=== PATIENT | female | born 1945 | race Caucasian/White ===

== ENCOUNTER 2017-09-04 21:19 | Inpatient (IN) | payer MEDICARE, MEDICAID ==
[2017-09-04 21:39] LABS: Actual Bicarbonate (HCO3a) 29.7 mEq/L (22-26); Base Excess (BEa) 1.7 mEq/L (0 (+/-) 2.5); Calcium, Ionized 1.1 mmol/L (1.12-1.30); Hematocrit-ABG 42.8 % (36.0-47.0); Hemoglobin (Hb) 13.8 g/dL (12.0-16.0)
[2017-09-04] MEDS ORDERED: Albuterol Sulfate 2.5 mg/0.5 ml Neb ONE (21:45)
[2017-09-04 21:57] LABS: CO2 Tension 62.4 mmHg (35.0-45.0)
[2017-09-04 21:58] LABS: Analyzer IN Cardio ER; Puncture Site RRA
[2017-09-04 22:05] LABS: #Lymphocytes 3.1 thou/uL (1.20-3.40); #Neutrophils 6.9 thou/uL (1.40-6.50); %Basophils 0.1 % (0.0-1.0); %Eosinophils 0.3 % (0.0-10.0); %Lymphocytes 27.9 % (21.0-51.0); %Monocytes 8.6 % (0.0-10.0); %Neutrophils 63.1 % (42.0-75.0); Hemoglobin 14.1 g/dL (12.0-16.0); Mean Corpuscular HGB CONC 32.9 g/dL (32.0-36.0); Mean Corpuscular Hemoglobin 31.5 pg (27.0-31.0); Mean Corpuscular Volume 95.6 fl (81.0-99.0); Mean Platelet Volume 7.9 fL (7.4-10.4); Platelet Count 210 thou/uL (130-400); RBC Distribution Width 13.5 % (11.5-14.5); Red Blood Cell (RBC) Count 4.49 mill/uL (4.20-5.40)
[2017-09-04 22:20] LABS: CKMB 1.6 ng/mL (0-6.6)
[2017-09-04 22:52] LABS: Acetaminophen Less than 6.0 mcg/mL (10.0-30.0); Alcohol Less than 10 mg/dL (Less than 10); Salicylate Less than 8.0 mg/dL (15.0-30.0)
[2017-09-04 23:25] LABS: ALT (SGPT) 12 U/L (8-55); AST (SGOT) 19 U/L (5-34); Albumin 3.7 g/dL (3.4-4.8); Alkaline Phosphatase 72 U/L (40-150); Anion Gap 19 mmol/L (10-20); BUN (Urea Nitrogen) 41 mg/dL (9.8-20.1); Bilirubin, Total 0.6 mg/dL (0.2-1.2); CK (CPK) 158 U/L (29-168); Calc. Creatinine Clearance 0 mL/min (70-130); Carbon Dioxide 24 mmol/L (23-31); Chloride 100 mmol/L (98-107); Estimated GFR-MDRD 18; Globulin 3.3 g/dL (2.4-3.5); Glucose 155 mg/dL (80-115); Lipase 21 U/L (8-78); Potassium 3.4 mmol/L (3.5-5.1); Sodium 140 mmol/L (136-145)
--- NOTE | 2017-09-04 23:35 | RAD ---
EXAM: ONE VIEW CHEST HISTORY: Syncope. COMPARISON: None. FINDINGS: Normal cardiac silhouette. Pulmonary vessels and hilum are normal. Diminished lung volumes, likely due to poor inspiratory effort. Small bilateral effusions cannot be excluded. Adjacent parenchymal changes may be due to atelectasis. No pneumothorax. IMPRESSION: Bibasilar pleural and parenchymal changes likely due to diminished lung volumes. Small bilateral eff usions cannot be excluded. POS: [facility]
[2017-09-04] MEDS ORDERED: hydrALAZINE 20 MG/ML VIAL ONE (23:40)
--- NOTE | 2017-09-04 23:47 | CT ---
EXAM: NONCONTRAST HEAD CT HISTORY: Syncope. The patient was found down on the ground by daughter. COMPARISON: None. TECHNIQUE: Noncontrast head CT is performed from the skull base to the skull vertex. FINDINGS: No parenchymal hemorrhage. No extraaxial hematoma. No midline shift. Basilar cisterns are patent. Age-appropriate atrophy. Cortical hood-white matter differentiation is preserved. Ventricles and sulci are patent and symmetric. Mild mucosal thickening of the ethmoid air cells. There is bilateral maxillary sinus mucosal thicken ing. Adequate mastoid air cell aeration. Calvarium is intact. IMPRESSION: No acute intracranial process. No intracranial post-traumatic sequelae. POS: [facility]
[2017-09-05] MEDS ORDERED: Nitroglycerin 0.4 MG TAB (25 Tab Bottle) ONE (00:05)
[2017-09-05 00:38] LABS: Actual Bicarbonate (HCO3a) 27.2 mEq/L (22-26); Base Excess (BEa) -0.1 mEq/L (0 (+/-) 2.5); CO2 Tension 55.5 mmHg (35.0-45.0); Calcium, Ionized 1.1 mmol/L (1.12-1.30); Hematocrit-ABG 43.3 % (36.0-47.0); Hemoglobin (Hb) 13.6 g/dL (12.0-16.0); O2 Tension (PaO2) 77.8 mmHg (80.0-100.0); pH, Arterial 7.31 (7.35-7.45)
[2017-09-05 01:02] LABS: ALV-art Gradient 84.185 (0-20); Analyzer IN Cardio ER; Puncture Site RRA
[2017-09-05 02:16] LABS: Troponin I 0.302 ng/mL (< 0.028)
[2017-09-05] MEDS ORDERED: Ondansetron ODT 4 MG TAB PO PRN (03:26)
[2017-09-05] MEDS ORDERED: hydrALAZINE 20 MG/ML VIAL SLOW IVP PRN ×2 (03:26→16:14)
[2017-09-05] MEDS ORDERED: Milk Of Magnesia 30 ML UDCUP PO PRN (03:26)
[2017-09-05] MEDS ORDERED: traMADol HCl 50 MG TAB PO PRN (03:26)
[2017-09-05] MEDS ORDERED: Ondansetron HCl/PF 4 MG/2 ML Vial IVP PRN (03:26)
--- NOTE | 2017-09-05 04:10 | HP ---
PRIMARY CARE PHYSICIAN: Dr. Milton Abel. CHIEF COMPLAINT: The patient was found down by her daughter. HISTORY OF PRESENT ILLNESS: Ms. Nesbitt is a pleasant 71-year-old female that has a history of hypertension and sciatica. She was apparently found down by her daughter and she is unsure how long her mother had been on the ground, probably 5 or 6 hours at least. The patient's daughter has since left and unfortunately unable to get any additional history. The patient herself does not remember the details of what happened, all she notices that she was found on the ground. Her daughter apparently told the ER physician that she believes her mother may have taken too many pain medications and was over sedated. When I asked the patient how many medications that she took with regard to her Tylenol No.3, she just shakes her head and says she does not know. When I asked how many she normally takes, she says typically only one tablet a day. When I asked if she took 2, 3, or 4, she just shakes her head and says that she does not know. Otherwise, she does not have any additional history to offer me. REVIEW OF SYSTEMS: Essentially unobtainable due to the patient not having any idea about her symptoms prior to being found on the floor. PAST MEDICAL HISTORY: Significant for sciatica, hypertension. When I asked if she has sleep apnea, she says that she has done a sleep study in [place], [place], but does not know the results. When I asked if she has any lung disease, she says she may have some lung disease which is "undiagnosed" she also has constant constipation. PAST SURGICAL HISTORY: Negative. ALLERGIES: SULFA. SOCIAL HISTORY: She is . She has 2 children. She is a former smoker. She quit 5 weeks ago. Prior to that, she was smoking a pack a day for 10 years. Denies any alcohol use. FAMILY HISTORY: Significant for heart disease. MEDICATIONS: Include Benicar, Linzess, Lyrica, and Tylenol with Codeine. PHYSICAL EXAMINATION: GENERAL: She is alert and oriented. She appears to be in no acute distress. VITAL SIGNS: Her blood pressure has ranged anywhere from 120 to 240 systolic, heart rate 82, respiratory rate of 20, temperature was 98.5. HEENT: Pupils are equal, round, and reactive. Extraocular muscles are intact. Sclerae anicteric. Throat no erythema, no exudates. NECK: No adenopathy, no bruits. LUNGS: She has got extensive wheezing and rhonchi throughout almost all of her lung lazaro posteriorly. CARDIOVASCULAR: She has a normal S1, S2. I did not appreciate any S3 or S4. No murmurs, clicks, or rubs. ABDOMEN: Obese, it is soft, it is nontender, nondistended. Positive for bowel sounds. No rebound, no guarding. EXTREMITIES: There is trace pedal edema. She does have some chronic venous stasis changes. NEUROLOGIC: The exam is nonfocal. LABORATORY DATA: White blood cell count is 11, hemoglobin 14.1, hematocrit is 42.9, platelet count was 210. Her ABG: pH was 7.3, pCO2 of 62, pO2 of 56. Chemistries: Sodium 140, potassium 3.4, chloride is 100, CO2 is 24, BUN of 41, creatinine 2.6, glucose is 155. Her Tylenol level less than 6. Aspirin level less than 8. Plasma alcohol level less than 10. She had a CT scan of the brain , which was negative for any acute process and on her chest x-ray, she had some atelectasis at the bases. ASSESSMENT AND PLAN: This is a 71-year-old female that presented to the emergency room with altered mental status. She was found down by her daughter. It is likely that she may have overdosed on Tylenol with Codeine; however, she also is fairly obese and likely has some undiagnosed sleep apnea. She was also hypercapnic and she appears to have at least an acute bronchitis on exam and as possible this combination with the lung infection and likely obesity hypoventilation could have led to an acute hypoxic and hypercapnic respiratory failure leading into decreased mentation as well. She will be placed in the IMCU given that she is currently on BiPAP. We will place her on DuoNebs and supplemental oxygen. Continue BiPAP and consult Pulmonary in the a.m. We also may need to use a low dose of steroids as well. Avoid any sedating medications. For hypertension, continue her usual medications for blood pressure. We will need to reconcile the doses and names of the medications and restart these as indicated. Acute renal failure vs. acute on chronic renal failure. Her baseline renal function is unknown. Will start gentle hydration as assess. May need to check urine electrolytes, and renal ultrasound. Once she is off Bipap try to further clarify her past medical history and previous renal function She will be placed on deep venous thrombosis and gastrointestinal prophylaxis. MTDD
[2017-09-05 04:28] LABS: #Basophils 0.1 thou/uL (0.0-0.2); #Lymphocytes 1.2 thou/uL (1.20-3.40); #Monocytes 0.3 thou/uL (0.11-0.59); #Neutrophils 6.7 thou/uL (1.40-6.50); %Basophils 1.2 % (0.0-1.0); %Eosinophils 0.6 % (0.0-10.0); %Lymphocytes 14.3 % (21.0-51.0); Hemoglobin 13.4 g/dL (12.0-16.0); Mean Corpuscular HGB CONC 32.6 g/dL (32.0-36.0); Mean Corpuscular Hemoglobin 31.2 pg (27.0-31.0); Mean Corpuscular Volume 95.7 fl (81.0-99.0); Mean Platelet Volume 7.9 fL (7.4-10.4); Platelet Count 200 thou/uL (130-400); RBC Distribution Width 13.6 % (11.5-14.5); Red Blood Cell (RBC) Count 4.28 mill/uL (4.20-5.40); White Blood Cell (WBC) Count 8.3 thou/uL (4.8-10.8)
[2017-09-05 04:46] LABS: Anion Gap 18 mmol/L (10-20); BUN (Urea Nitrogen) 47 mg/dL (9.8-20.1); Calc. Creatinine Clearance 0 mL/min (70-130); Calcium 8.7 mg/dL (7.8-10.44); Carbon Dioxide 28 mmol/L (23-31); Chloride 98 mmol/L (98-107); Estimated GFR-MDRD 14; Glucose 216 mg/dL (80-115); Potassium 3.5 mmol/L (3.5-5.1); Sodium 140 mmol/L (136-145)
[2017-09-05 04:50] LABS: Troponin I 0.262 ng/mL (< 0.028)
--- NOTE | 2017-09-05 08:07 | ULT ---
RENAL ULTRASOUND: HISTORY: Acute renal failure. TECHNIQUE: Real-time imaging of the right and left kidneys was performed. FINDINGS: The right kidney measures 9.4 and the left kidney 10.3 cm in size. There are no signs of cyst, mass, or obstruction. The bladder region appears unremarkable. Some mild cortical thinning involving bot h kidneys. IMPRESSION: Mild cortical thinning involving both kidneys. No signs of obstruction or mass. POS: [facility]
[2017-09-05] MEDS ORDERED: Famotidine 20 MG TAB PO SCH (09:00)
[2017-09-05] MEDS ORDERED: Famotidine 20 MG TAB ONE (09:29)
[2017-09-05] MEDS ORDERED: Heparin 5,000 UNITS/ML VIAL ONE (09:29)
[2017-09-05] MEDS: Sodium Chloride 0.9% 1,000 ML IV SCH ×2 (14:09→16:33)
[2017-09-05] MEDS: Azithromycin 500 MG in Sodium Chloride 0.9% 250 ML 250 ML IVPB SCH (14:09)
[2017-09-05] MEDS: cefTRIAXone\\ROCEPHIN 2 GM in Sodium Chloride 0.9% 100 ML IVPB SCH (14:10)
[2017-09-05] MEDS: Heparin 5,000 UNITS/ML VIAL SC SCH ×3 (14:11→20:49)
[2017-09-05] MEDS: Aspirin 325 mg Enteric Coated Tablet PO SCH (14:11)
[2017-09-05] MEDS: Docusate 100 MG CAP PO SCH ×2 (14:11→20:49)
[2017-09-05] MEDS: Nitroglycerin 2% Ointment 1 INCH/1 GM Packet TOP SCH ×3 (15:14→22:25)
[2017-09-05 15:49] VITALS: BMI 44.4
--- NOTE | 2017-09-05 16:09 | PDOC.EVN ---
Event Note - Event Note Event Note: pt seen and evaluated cont current plan
[2017-09-05 16:18] LABS: Bilirubin Small (Negative); Blood, Urine Small (Negative); Clarity CLOUDY (Clear); Glucose, Urine (Dipstick) Negative (Negative); Leukocyte Small (Negative); Nitrite Negative (Negative); Protein, Urine (Dipstick) 30 mg/dL (Neg-Trace); Specific Gravity, Urine 1.024 (1.002-1.036); Urobilinogen 0.2 mg/dL (0.2-1.0); pH, Urine 5.5 (5.0-9.0)
[2017-09-05] MEDS ORDERED: FLU VACC TS2017-18 (>65YR) 0.5 ML SYRINGE IM ONE (16:30)
[2017-09-05 16:38] LABS: Pathc Cast-AUWi Flag 3.65 (0-2.49); Yeast-AUWi Flag 323.3 (0-25.0)
[2017-09-05 16:46] LABS: Bacteria/HPF 2+ HPF (None Seen); Hyaline Casts/LPF 4-6 HYALINE CAST LPF (0-3 Hyaline); Manual Microscopic Reviewed? No Path Casts Seen; Renal Epithelial None Seen HPF (0-3); Transitional Epithelial NONE SEEN HPF (0-3); Yeast-All Forms None Seen HPF (None Seen)
[2017-09-05 17:11] LABS: Troponin I 0.122 ng/mL (< 0.028)
--- NOTE | 2017-09-05 17:49 | CON ---
DATE OF CONSULTATION: 09/05/2017 CONSULTING PHYSICIAN: Flower Hartman M.D. REQUESTING PHYSICIAN: Dr. Huizar. REASON FOR CONSULTATION: Advanced chronic kidney disease. IMPRESSION: 1. Advanced chronic kidney disease, stage 4. This is likely in the context of nonsteroidal anti-inf lammatory drugs induced nephropathy plus or minus hypertensive nephrosclerosis. 2. Cannot completely rule out acute on chronic kidney disease component, the patient passed out for several hours. PLAN: 1. Gentle rehydration. 2. Counseling given on the need to avoid nonsteroidal anti-inflammatory drugs for now. 3. Renally dose all medications per low GFR. 4. Avoid potentially nephrotoxic agents. 5. Further management will be dependent on the clinical course. HISTORY OF PRESENT ILLNESS: History is that of a 71-year-old female patient who was found down by th e daughter and brought in here. The patient is on several pain medications, especially nonsteroidal anti-inflammatory drugs in addition to narcotic. The patient on presentation was noted to have signi ficant respiratory acidosis, hypercapnic respiratory failure. The patient at time of dictation seems to have much improved and is able to give me a history, alert and oriented x3. On presentation, the patient was noted with a creatinine of about 2.6, this has risen to above 3, thus the need for renal consultation. PAST MEDICAL HISTORY: Significant for hypertension, possible sleep apnea, hypoventilation syndrome i n the context of body habitus. MEDICATIONS: Reviewed and as documented on [employer]. ALLERGIES: SULFA. SOCIAL HISTORY: Denies alcohol. Tobacco use, quit about 5 weeks ago, has smoked for about 10 years. FAMILY HISTORY: Significant for heart disease. LABORATORY INVESTIGATION: Showed a pH of 7.30 on presentation with a pCO2 of 62 and pO2 of 56. Chem istry showed a creatinine of 3.33, BUN of 47, BNP of 466. CBC unremarkable. PHYSICAL EXAMINATION: GENERAL: The patient was found not to be in any obvious distress, noted with the following vital sig ns. VITAL SIGNS: Afebrile with temperature 97, pulse 63, respiratory rate of 20, O2 sat of 99% with bloo d pressure 130/64. HEENT: Unremarkable with moist oral mucosa. Neck is supple. No conjunctival injection or icterus. CARDIOVASCULAR SYSTEM: First and second heart sounds were heard. RESPIRATORY SYSTEM: Clear to auscultation. DIGESTIVE SYSTEM: Revealed a benign abdomen with positive bowel sounds. EXTREMITIES: No peripheral edema. SKIN: No new gross rash. LYMPHATICS: No peripheral lymphadenopathy. SUMMARY: A 71-year-old female patient, who presented here, having been found down and passed out, no w noted with worsening renal failure. Thank you for this consultation. We will follow with you.
[2017-09-05] MEDS ORDERED: Prevnar 13-Val Conj/PF 0.5 ML SYRINGE IM ONE (18:45)
[2017-09-05] MEDS ORDERED: predniSONE 20 MG TAB PO SCH (19:00)
--- NOTE | 2017-09-05 23:05 | CON ---
DATE OF CONSULTATION: 09/05/2017 HISTORY: Thais Nesbitt is a 71-year-old white female who has a history of hypertension and sciatica, who was found down at home by her daughter. It is unclear how long she was on the floor, possibly 5-6 hours. The patient really does not remember exactly what occurred. She was then found to have abnormal cardiac enzymes as well as chronic kidney disease versus acute kidney injury. She does state that one month ago on 08/01/2017, she underwent heart catheterization at [facility] in [place] and was told that her heart arteries did not have any significant blockages. She also apparently had some kidney abnormalities around that time too. She denies any chest discomfort to me; however, when asked why she had a heart catheterization, the daughter states it was for chest pains. PAST MEDICAL HISTORY: Hypertension. She has undergone a sleep study, but results are not known. Hypercholesterolemia. OPERATIONS: None. MEDICATIONS: Tylenol with codeine, aspirin 81 daily, Nexium 40 q.a.m., furosemide 40 daily, Linzess 145 mcg a.c., Benicar unknown dose daily, Lyrica 150 mg b.i.d., rosuvastatin 20 mg daily. ALLERGIES: SULFA. SOCIAL HISTORY: She smoked 1-2 packs per day, but stopped 4-5 weeks ago. She does not drink. FAMILY HISTORY: Negative. REVIEW OF SYSTEMS: Ten point review of systems is unremarkable. PHYSICAL EXAMINATION: VITAL SIGNS: Blood pressure 130/64, pulse is 63. HEENT: PERRL. NECK: Supple. CHEST: Clear. CARDIAC: S1 and S2 are normal without any S3, S4, or murmurs. ABDOMEN: Obese, normal bowel sounds. No tenderness. EXTREMITIES: Revealed 1+ pretibial edema. NEUROLOGIC: Grossly intact. SKIN: Warm and dry. LABORATORY DATA: EKG revealed normal sinus rhythm with baseline artifact. CBC is unremarkable. PH 7.31, pCO2 of 55.5, pO2 of 77.8, sodium 140, potassium 3.5 , chloride 98, carbon dioxide 28, BUN 47, creatinine 3.33 which is up from 2.61 , glucose 216, troponin I 0.30. CK 158, CK-MB 1.6. IMPRESSION: 1. Chronic obstructive pulmonary disease with CO2 retention. Smoker until 4 weeks ago. 2. Fall versus syncope at home. 3. Acute kidney injury and/or chronic kidney disease, possibly exacerbated by dye nephropathy from catheterization 5 weeks ago. I agree with discontinuation of the furosemide and Benicar/HCT at the present time until this can be further sorted out. 4. Reportedly normal coronary arteries on catheterization 5 weeks ago. 5. Hypertension. 6. Hypercholesterolemia. 7. Probable diabetes. PLAN: Echocardiogram will be performed to assess left ventricular function. Request will be made for catheterization report. I feel that her elevated enzymes are probably related to her kidney injury as well as demand ischemia. JOEY
[2017-09-05 23:14] LABS: Troponin I 0.098 ng/mL (< 0.028)
--- NOTE | 2017-09-05 23:51 | CON ---
DATE OF SERVICE: 09/05/2017 SERVICE: Pulmonary medicine. REASON FOR CONSULTATION: [facility] patient. HISTORY OF PRESENT ILLNESS: The patient is a 71-year-old white female with past medical history significant for a greater than [id number] history of smoking. She was in her usual state of health until about a week prior to admission. She started having something that felt like a little bit of an upper respiratory tract infection. She remembers having these symptoms because she was trying to stay away from her 5-year-old granddaughter to prevent her from getting sick. Either way, this really was not that significant of an illness. She went to bed and everything was essentially normal, she was found on the floor the next morning essentially unresponsive by family members. She was brought to the emergency department. She was placed on noninvasive ventilation. She was stuck into the ICU. Her mentation improved fairly quickly. As such, she is being considered for transition back to the floor. She has a cough on a daily basis. This has been present for a prolonged period of time. Does not bring up any sputum at this point and it seems to be roughly at baseline. She was tested for obstructive sleep apnea couple of months ago. She is yet to have her followup appointment, but she does distinctly remember being fitted with the CPAP mask in the middle of the night. PAST MEDICAL HISTORY: 1. Hypertension. 2. Obstructive sleep apnea. 3. Chronic obstructive pulmonary disease, strongly suspected. 4. Sciatica. PAST SURGICAL HISTORY: None. ALLERGIES: SULFA. MEDICATIONS: Listed inpatient medications were reviewed. Multiple small updates were made. SOCIAL HISTORY: She has 2 children and is . She has an [id number] history of smoking, but quit recently. She denies any alcohol or illicit drug use. She has no exposure to chemicals, dust, asbestos or tuberculosis. FAMILY HISTORY: Noncontributory. REVIEW OF SYSTEMS: General, head, ears, eyes, nose, throat, cardiovascular, respiratory, GI, , musculoskeletal, neurologic and skin is negative except as mentioned in the HPI. PHYSICAL EXAMINATION: VITAL SIGNS: Afebrile, pulse 63, blood pressure 130/64, respirations 20, saturation 99% on 3 liters nasal cannula. GENERAL: The patient is awake, alert, no apparent distress. LUNGS: Very reduced air entry with prolonged expiratory phase and polyphonic wheezing. I do not appreciate any significant rhonchi or crackles, though she is really not moving enough there to appreciate these things. HEART: Normal rate, regular. ABDOMEN: Soft, nontender, nondistended. Bowel sounds are positive. MUSCULOSKELETAL: No cyanosis or clubbing. No pitting in the bilateral lower extremities. NEUROLOGIC: Grossly nonfocal. LABORATORY DATA: WBC 8.3, hemoglobin 13.4, platelets 200,000. Neutrophil count is 88%. PH 7.31, pCO2 of 55, pO2 of 78. Creatinine 3.33. Basic metabolic profile is otherwise unremarkable. Magnesium 2.3. Troponin 0.122 and down trending. Lever function studies are unremarkable. Urinalysis is unremarkable. Tox screen was negative for salicylate, acetaminophen and alcohol , though a drug screen was not performed. IMAGIN. Ultrasound of the bilateral kidneys demonstrates no evidence of hydronephrosis. 2. Chest x-ray demonstrates large lung volumes for her height. Chronic changes in the bibasilar regions are suggested. This is underpenetrated film. 3. CT of the brain demonstrates no acute intracranial abnormality. ASSESSMENT: 1. Acute hypoxic and hypercapnic respiratory failure. 2. Chronic obstructive pulmonary disease, suspected with acute exacerbation. 3. Syncope, resolved. 4. Metabolic encephalopathy, resolved. 5. Obstructive sleep apnea based on patient's history of wearing the CPAP during the sleep study. PLAN: We will continue treating her for COPD exacerbation. The azithromycin and Rocephin can be transitioned over to p.o. medications. We will continue our steroids for a total duration of 4 more days. Respiratory virus panel will be obtained. A gentle IV hydration will be provided and hopefully, her renal function will start to slowly improve with time. I do agree that she is stable for transition out of the [facility], but I will continue to follow for 1 additional day. 70 minutes have been devoted to this patient in various activities. For at least half of this time, I was at the bedside in direct patient interaction or coordinating care with the care team. For the remainder of the time I was immediately available to the patient in the hospital unit. JOEY
[2017-09-06] MEDS: Acetaminophen 325 MG TAB PO PRN ×2 (03:07→12:29)
[2017-09-06 04:49] LABS: Amphetamine Not Detected (NotDetected); Benzodiazepine Screen Not Detected (NotDetected); Cocaine Metabolite Screen Not Detected (NotDetected); Medtox Reader # READER 1; Methadone Not Detected (NotDetected); Methamphetamine Not Detected (NotDetected); Opiate Screen Detected (NotDetected); Phencyclidine (PCP) Not Detected (NotDetected); THC/Cannabinoid Screen Not Detected (NotDetected); Tricyclic Screen Not Detected (NotDetected)
[2017-09-06 04:50] LABS: Barbiturates Screen Not Detected (NotDetected); Medtox Control Line Valid? VALID (VALID); Oxycodone Screen Not Detected (NotDetected)
[2017-09-06] MEDS: Azithromycin 500 MG in Sodium Chloride 0.9% 250 ML 250 ML IVPB SCH (05:11)
[2017-09-06 05:38] LABS: #Lymphocytes 1.5 thou/uL (1.20-3.40); #Monocytes 0.5 thou/uL (0.11-0.59); #Neutrophils 13.7 thou/uL (1.40-6.50); %Eosinophils 0.1 % (0.0-10.0); %Lymphocytes 9.7 % (21.0-51.0); %Monocytes 3.1 % (0.0-10.0); %Neutrophils 87.2 % (42.0-75.0); Hemoglobin 12.1 g/dL (12.0-16.0); Mean Corpuscular HGB CONC 32.5 g/dL (32.0-36.0); Mean Corpuscular Hemoglobin 31.2 pg (27.0-31.0); Mean Platelet Volume 8.3 fL (7.4-10.4); Platelet Count 210 thou/uL (130-400); RBC Distribution Width 13.7 % (11.5-14.5); Red Blood Cell (RBC) Count 3.87 mill/uL (4.20-5.40); White Blood Cell (WBC) Count 15.7 thou/uL (4.8-10.8)
[2017-09-06 06:07] LABS: Troponin I 0.079 ng/mL (< 0.028)
[2017-09-06 06:19] LABS: Albumin 3.3 g/dL (3.4-4.8); Anion Gap 16 mmol/L (10-20); BUN (Urea Nitrogen) 58 mg/dL (9.8-20.1); BUN/Creatinine Ratio 24.17; Calc. Creatinine Clearance 41 mL/min (70-130); Calcium 8.4 mg/dL (7.8-10.44); Carbon Dioxide 27 mmol/L (23-31); Chloride 100 mmol/L (98-107); Estimated GFR-MDRD 20; Glucose 193 mg/dL (80-115); Phosphorus 3.7 mg/dL (2.3-4.7); Potassium 3.5 mmol/L (3.5-5.1); Sodium 139 mmol/L (136-145)
[2017-09-06] MEDS: Nitroglycerin 2% Ointment 1 INCH/1 GM Packet TOP SCH ×3 (06:32→22:39)
[2017-09-06] MEDS: cefTRIAXone\\ROCEPHIN 2 GM in Sodium Chloride 0.9% 100 ML IVPB SCH (06:33)
[2017-09-06] MEDS: Aspirin 325 mg Enteric Coated Tablet PO SCH (07:56)
[2017-09-06] MEDS: Sodium Chloride 0.9% 1,000 ML IV SCH ×2 (07:56→20:49)
[2017-09-06] MEDS: predniSONE 20 MG TAB PO SCH (07:56)
[2017-09-06] MEDS: Docusate 100 MG CAP PO SCH ×2 (07:57→20:42)
[2017-09-06] MEDS: Heparin 5,000 UNITS/ML VIAL SC SCH ×3 (07:57→20:42)
[2017-09-06 08:22] LABS: Hemoglobin A1c 5.7 % (4.0-6.0)
[2017-09-06 08:31] LABS: Cardiac Risk 4.6 (Less than 4.5)
--- NOTE | 2017-09-06 14:01 | PDOC.PN ---
- Subjective Encounter Start Date: 09/06/17 Encounter Start Time: 14:00 doing much better no n/v no sob no cp feels anxious - Objective Resuscitation Status: Resuscitation Status FULL:Full Resuscitation MAR Reviewed: Yes Vital Signs & Weight: Vital Signs (12 hours) Temp Pulse Resp BP BP BP Pulse Ox 09/06/17 13:11 55 L 16 95 09/06/17 11:31 97.6 F 62 20 134/56 L 99 09/06/17 09:19 148/47 H 112/45 L 09/06/17 08:00 97.9 F 65 18 98 09/06/17 07:00 97.9 F 65 18 131/50 L 98 09/06/17 06:51 98 09/06/17 06:36 65 18 98 09/06/17 04:00 98.6 F 67 16 122/50 L 95 Pulse Ox Pulse Ox 09/06/17 13:11 09/06/17 11:31 09/06/17 09:19 100 98 09/06/17 08:00 09/06/17 07:00 09/06/17 06:51 09/06/17 06:36 09/06/17 04:00 Weight Weight 260 lb 14.4 oz I&O: 09/05/17 09/06/17 09/07/17 06:59 06:59 06:59 Intake Total 250 1090 Output Total 350 350 Balance -100 740 Result Diagrams: 09/06/17 04:27 09/06/17 04:27 Additional Labs: Accuchecks 09/05/17 20:40 POC Glucose 150 H Phys Exam - Physical Examination Constitutional: NAD HEENT: PERRLA Neck: no JVD Respiratory: no wheezing Cardiovascular: RRR Gastrointestinal: non-tender Musculoskeletal: pulses present Neurological: normal sensation Psychiatric: A&O x 3 Dx/Plan (1) Altered mental state Code(s): R41.82 - ALTERED MENTAL STATUS, UNSPECIFIED Status: Resolved Comment: due to meds (2) Elevated troponin Code(s): R74.8 - ABNORMAL LEVELS OF OTHER SERUM ENZYMES Status: Acute (3) Renal failure (ARF), acute on chronic Code(s): N17.9 - ACUTE KIDNEY FAILURE, UNSPECIFIED; N18.9 - CHRONIC KIDNEY DISEASE, UNSPECIFIED Status: Acute (4) UTI (urinary tract infection) Status: Acute (5) Obesities, morbid Code(s): E66.01 - MORBID (SEVERE) OBESITY DUE TO EXCESS CALORIES Status: Acute - Plan * f/u urine cul resulys * f/u renal plan * card and pulm input appreiciated
[2017-09-06] MEDS: Nicotine 14 MG PATCH TD SCH (15:13)
--- NOTE | 2017-09-06 15:20 | PRG ---
DATE OF SERVICE: 09/06/2017 SUBJECTIVE: The patient was seen and examined, seems to be doing much better. PHYSICAL EXAMINATION: VITAL SIGNS: Afebrile with temperature 97.6, pulse 62, respiratory rate 20, O2 sat 99% on 2 liters, blood pressure 134/56. HEENT: Unremarkable with moist oral mucosa. Neck is supple. No conjunctival injection or icterus. CARDIOVASCULAR: First and second heart sounds were heard. RESPIRATORY: Clear to auscultation. DIGESTIVE: Revealed a benign abdomen with positive bowel sounds. EXTREMITIES: No peripheral edema. SKIN: No new gross rash. LYMPHATICS: No peripheral lymphadenopathy. LABORATORY INVESTIGATION: Showed a white count of 15,000. Chemistry showed a creatinine down to 2.4 with BUN of 58. IMPRESSION: Acute on chronic kidney disease seems to be improving on gentle IV fluid resuscitation. PLAN: 1. We will continue renal supportive measures. For now, the patient can make do with continue gentl e IV fluid resuscitation which can be discontinued within the next 24 hours. 2. Further management to be dependent on the clinical course. We will continue to renally dose all medications per low GFR.
[2017-09-06] MEDS: Benzonatate 100 MG CAP PO PRN ×2 (16:26→20:45)
--- NOTE | 2017-09-06 22:34 | PRG ---
DATE OF SERVICE: 09/06/2017 SERVICE: Pulmonary Medicine. INTERVAL HISTORY: The patient is doing fine from a respiratory standpoint. She currently denies any fevers, chills, nausea, or vomiting. Her breathing is actually much improved. She had no syncopal events. There were no events on telemetry. Otherwise, she is returning to her usual state of health . She is looking forward to be on medicine for COPD if she has it. She is also looking for the se[place] part of her sleep study. PHYSICAL EXAMINATION: VITAL SIGNS: Afebrile, pulse 84, blood pressure 122/46, respirations 20, saturation 97% on 2 liters nasal cannula. GENERAL: Patient is awake, alert, in no apparent distress. LUNGS: Decreased air entry. There is a prolonged expiratory phase and I appreciate wheezing. HEART: Normal rate, regular. ABDOMEN: Soft, nontender, nondistended. Bowel sounds are positive. MUSCULOSKELETAL: No cyanosis or clubbing. No pitting in the bilateral lower extremities. NEUROLOGIC: Grossly nonfocal. LABORATORY DATA: WBC 15.7, hemoglobin 12.1, platelets 210,000. Neutrophil count is 87%. Creatinine 2.4 and nicely downtrending, BUN 58. Basic metabolic profile is otherwise unremarkable. Cardiac en zymes are down trending to 0.079, albumin 3.3. Urine drug screen is positive for opiates despite the fact that we really did not give her anything she has been in the hospital. ASSESSMENT: 1. Acute hypoxic and hypercapnic respiratory failure, resolved. 2. Chronic obstructive pulmonary disease with acute exacerbation, suspected. 3. Metabolic encephalopathy, possibly secondary to overuse of opiate, resolved. 4. Obstructive sleep apnea based on history. PLAN: The patient is, at this point, ready for transition out of the [facility]. From my perspective, she is even stable for transition to home. We switch all of her IV medications over to p.o. and she can complete a 5-day course of steroids, and antibiotics in the outpatient setting. Pulmonary Critical Care will continue to follow while she remains in house for the time being. I would like her to foll ow up with me in the outpatient setting, so we can clarify her underlying lung disease and get her st arted on CPAP therapy.
[2017-09-07] MEDS: Benzonatate 100 MG CAP PO PRN ×2 (03:51→13:53)
[2017-09-07 05:17] LABS: #Lymphocytes 1.9 thou/uL (1.20-3.40); #Monocytes 0.7 thou/uL (0.11-0.59); %Basophils 0.1 % (0.0-1.0); %Eosinophils 0.2 % (0.0-10.0); %Lymphocytes 12.8 % (21.0-51.0); %Monocytes 4.9 % (0.0-10.0); Hemoglobin 12.4 g/dL (12.0-16.0); Mean Corpuscular HGB CONC 32.9 g/dL (32.0-36.0); Mean Corpuscular Hemoglobin 31.5 pg (27.0-31.0); Mean Corpuscular Volume 95.6 fl (81.0-99.0); Mean Platelet Volume 7.6 fL (7.4-10.4); Platelet Count 242 thou/uL (130-400); RBC Distribution Width 13.6 % (11.5-14.5); Red Blood Cell (RBC) Count 3.94 mill/uL (4.20-5.40); White Blood Cell (WBC) Count 14.7 thou/uL (4.8-10.8)
[2017-09-07 05:42] LABS: Albumin 3.4 g/dL (3.4-4.8); Anion Gap 15 mmol/L (10-20); BUN (Urea Nitrogen) 45 mg/dL (9.8-20.1); BUN/Creatinine Ratio 28.13; Calc. Creatinine Clearance 62 mL/min (70-130); Calcium 9.1 mg/dL (7.8-10.44); Carbon Dioxide 24 mmol/L (23-31); Chloride 105 mmol/L (98-107); Estimated GFR-MDRD 32; Glucose 109 mg/dL (80-115); Phosphorus 2.3 mg/dL (2.3-4.7); Potassium 3.4 mmol/L (3.5-5.1); Sodium 141 mmol/L (136-145)
[2017-09-07] MEDS: cefTRIAXone\\ROCEPHIN 2 GM in Sodium Chloride 0.9% 100 ML IVPB SCH (05:49)
[2017-09-07] MEDS: Nitroglycerin 2% Ointment 1 INCH/1 GM Packet TOP SCH ×3 (05:55→21:03)
[2017-09-07] MEDS: Heparin 5,000 UNITS/ML VIAL SC SCH ×3 (08:40→20:58)
[2017-09-07] MEDS: Aspirin 325 mg Enteric Coated Tablet PO SCH (08:40)
[2017-09-07] MEDS: Docusate 100 MG CAP PO SCH ×2 (08:40→20:59)
[2017-09-07] MEDS: Sodium Chloride 0.9% 1,000 ML IV SCH (08:40)
[2017-09-07] MEDS: Azithromycin 200 MG/5 ML Oral Suspension PO SCH (08:41)
[2017-09-07] MEDS: predniSONE 20 MG TAB PO SCH (08:41)
[2017-09-07] MEDS ORDERED: Potassium Chloride 20 MEQ TAB PO SCH ×2 (10:30→15:30)
--- NOTE | 2017-09-07 14:06 | PDOC.PN ---
- Subjective Encounter Start Date: 09/07/17 Encounter Start Time: 14:04 Patient seen and examined. No new complaints. No overnight events - Objective Resuscitation Status: Resuscitation Status FULL:Full Resuscitation MAR Reviewed: Yes Vital Signs & Weight: Vital Signs (12 hours) Temp Pulse Pulse Pulse Resp BP BP 09/07/17 11:00 97.2 F L 69 18 09/07/17 09:26 09/07/17 09:25 69 16 09/07/17 08:52 68 72 154/51 H 175/45 H 09/07/17 08:00 97.3 F L 66 20 09/07/17 07:00 97.3 F L 66 20 09/07/17 05:10 98.4 F 67 20 BP Pulse Ox Pulse Ox Pulse Ox 09/07/17 11:00 154/51 H 93 L 09/07/17 09:26 96 09/07/17 09:25 09/07/17 08:52 100 100 09/07/17 08:00 100 09/07/17 07:00 154/64 H 100 09/07/17 05:10 140/48 L 100 Weight Weight 265 lb 4.8 oz I&O: 09/06/17 09/07/17 09/08/17 06:59 06:59 06:59 Intake Total 1090 4950 Output Total 350 950 Balance 740 4000 Result Diagrams: 09/07/17 04:44 09/07/17 04:44 Phys Exam - Physical Examination Constitutional: NAD HEENT: PERRLA Neck: no JVD Respiratory: no rales Cardiovascular: no significant murmur Gastrointestinal: non-tender Musculoskeletal: pulses present Psychiatric: A&O x 3 Dx/Plan (1) Altered mental state Code(s): R41.82 - ALTERED MENTAL STATUS, UNSPECIFIED Status: Resolved Comment: due to meds (2) Elevated troponin Code(s): R74.8 - ABNORMAL LEVELS OF OTHER SERUM ENZYMES Status: Acute (3) Renal failure (ARF), acute on chronic Code(s): N17.9 - ACUTE KIDNEY FAILURE, UNSPECIFIED; N18.9 - CHRONIC KIDNEY DISEASE, UNSPECIFIED Status: Acute (4) UTI (urinary tract infection) Status: Acute (5) Obesities, morbid Code(s): E66.01 - MORBID (SEVERE) OBESITY DUE TO EXCESS CALORIES Status: Acute - Plan * doing better * transfer to medical * possible home in am
[2017-09-07] MEDS: Nicotine 14 MG PATCH TD SCH (14:38)
--- NOTE | 2017-09-07 15:37 | PRG ---
DATE OF SERVICE: 09/07/2017 SERVICE: Pulmonary Medicine. INTERVAL HISTORY: The patient is doing fine from a respiratory standpoint. She denies any current f rashmi, chills, nausea, vomiting, or chest discomfort. Otherwise, there has been no change to her con dition. She is breathing more comfortably today. She is bringing up less sputum. There were no ove rnight events. PHYSICAL EXAMINATION: VITAL SIGNS: Afebrile, pulse 69, blood pressure 154/51, respirations 18, saturation 93% on 2 liters nasal cannula. GENERAL: Patient is awake, alert, in no apparent distress. LUNGS: Decent air entry. Dependent crackles are present. There is expiratory wheezing. There is s lightly prolonged expiratory phase. Rhonchi have cleared. HEART: Normal rate, regular. ABDOMEN: Soft, nontender, and nondistended. Bowel sounds are positive. MUSCULOSKELETAL: No cyanosis or clubbing. No pitting in the bilateral lower extremities. NEUROLOGIC: Grossly nonfocal. LABORATORY DATA: WBC 14.7, hemoglobin 13.7, and platelets 242,000. Creatinine 1.60 and down trendin g. BUN 45. Basic metabolic profile is otherwise unremarkable except for potassium of 3.4. Phosphor us is normal. Urine drug screen is positive for opiates. ASSESSMENT: 1. Acute hypoxic and hypercapnic respiratory failure, resolved. 2. Chronic obstructive pulmonary disease with acute exacerbation, suspected. 3. Metabolic encephalopathy secondary to opiate overuse, resolved. 4. Obstructive sleep apnea, based on history. PLAN: The patient is stable for transition out of the [facility]. If she is stable for an additional 24 h ours, transition home can be considered. I would like for her to follow up with me in the outpatient setting. Pulmonary or Critical Care will continue to follow if she remains in this location.
[2017-09-07] MEDS: Cefdinir 300 MG CAP PO SCH (20:59)
[2017-09-08] MEDS: Nitroglycerin 2% Ointment 1 INCH/1 GM Packet TOP SCH (05:12)
[2017-09-08 06:41] LABS: Albumin 3.2 g/dL (3.4-4.8); Anion Gap 11 mmol/L (10-20); BUN (Urea Nitrogen) 30 mg/dL (9.8-20.1); BUN/Creatinine Ratio 26.79; Calc. Creatinine Clearance 90 mL/min (70-130); Carbon Dioxide 29 mmol/L (23-31); Chloride 108 mmol/L (98-107); Estimated GFR-MDRD 48; Glucose 94 mg/dL (80-115); Phosphorus 2.2 mg/dL (2.3-4.7); Potassium 3.7 mmol/L (3.5-5.1); Sodium 144 mmol/L (136-145)
--- NOTE | 2017-09-08 07:03 | PRG ---
DATE OF SERVICE: 09/07/2017 SUBJECTIVE: The patient was seen and examined, seems to be doing so much better. PHYSICAL EXAMINATION: Noted with following vital signs, VITAL SIGNS: Afebrile with temperature 97.4, pulse 76, respiratory rate 19, O2 sat 95% with a blood pressure 165/63. HEENT: Unremarkable with moist oral mucosa. Neck is supple. No conjunctival injection or icterus. CARDIOVASCULAR: First and second heart sounds were heard. RESPIRATORY: Clear to auscultation. DIGESTIVE: Revealed a benign abdomen with positive bowel sounds. EXTREMITIES: Peripheral edema. SKIN: No new gross rash. LYMPHATICS: No peripheral lymphadenopathy. LABORATORY INVESTIGATION: Showed a . IMPRESSION: 1. Acute on chronic kidney disease seems to grossly improved. 2. Mild hypokalemia. PLAN: 1. Discontinue IV fluid. 2. Rehydrate with normal saline.
[2017-09-08] MEDS: Cefdinir 300 MG CAP PO SCH (09:00)
[2017-09-08] MEDS: Docusate 100 MG CAP PO SCH (09:00)
[2017-09-08] MEDS: Aspirin 325 mg Enteric Coated Tablet PO SCH (09:00)
[2017-09-08] MEDS: Azithromycin 200 MG/5 ML Oral Suspension PO SCH (09:00)
[2017-09-08] MEDS: predniSONE 20 MG TAB PO SCH (09:00)
[2017-09-08] MEDS: Heparin 5,000 UNITS/ML VIAL SC SCH (09:04)
[2017-09-08 12:36] VITALS: BP 185/84; TEMP 97.8
--- NOTE | 2017-09-08 20:21 | DIS ---
DATE OF ADMISSION: 09/04/2017 DATE OF DISCHARGE: 09/08/2017 DISCHARGE DIAGNOSES: 1. Altered mental state secondary to Tylenol and codeine use. 2. Acute renal failure on chronic kidney disease secondary to hydrochlorothiazide and Lasix use. 3. Elevated troponin, possibly secondary to demand ischemia. 4. Chronic obstructive pulmonary disease exacerbation, resolved. 5. Acute bronchitis, stable. 6. Obstructive sleep apnea, stable. 7. Obesity, stable, counseled. 8. Tobacco use, history of quitting 5 weeks back. 9. Some anxiety, stable. DISCHARGE MEDICATIONS: Include all home medications except for discontinuation of the lisinopril, hy drochlorothiazide. I am going to put the patient on Norvasc 5 mg p.o. daily and losartan 25 mg p.o. daily. Patient is also going to go home on Medrol Dosepak, Omnicef 300 mg p.o. b.i.d. for 5 more day s, continuation of all other home medications. CONSULTANTS ON THE CASE: Dr. Hale, Dr. Crenshaw and Dr. Bunny Trotter. BRIEF HOSPITAL COURSE: This is a 71-year-old pleasant lady came into the hospital with altered menta l state. Please refer to the admitting physician's H&P for further details. The patient was on Tyle nol with codeine for sciatica which was the cause of the altered mental state. When the medication w as stopped, the patient improved. She became more alert and awake. Patient was treated with IV anti biotics and IV steroids for the COPD exacerbation as well. Dr. Hale consulted. Respiratory statu s of the patient improved. The patient did well from a respiratory standpoint. Dr. Hale wanted t o follow up with the patient for evaluation of sleep apnea if that is a component. Acute on chronic kidney disease was probably secondary to the medication side effects of medication and dehydration. Dr. Crenshaw was consulted. IV hydration was given. The patient improved with this treatment and the creatinine improved nicely. Dr. Bunny Mejia was consulted for elevated troponin. He thought it was secondary to demand ischemia and wanted to follow the patient as an outpatient as well. The p atient improved in this hospital stay. Right now, she just feels a little anxious, which is relieved by the the nicotine patch. I have told her to follow up with the regular doctor and stop smoking an d has to be evaluated by the regular doctor for further nicotine withdrawal and treatment of the anxi ety. The patient understands all this. She is asked to come back to the emergency room in case symp toms recur. Total time for this discharge took 35 minutes.
--- NOTE | 2017-11-23 11:43 | EKG ---
Test Reason : Blood Pressure : / mmHG Vent. Rate : 076 BPM Atrial Rate : 076 BPM P-R Int : 122 ms QRS Dur : 084 ms QT Int : 452 ms P-R-T Axes : 046 002 097 degrees QTc Int : 508 ms Normal sinus rhythm Prolonged QT No STEMI Abnormal ECG Confirmed by VIRGINIA BHAT M.D. ([id number]), editorial director ANNA MAHONEY ([id number] on 11/23/2017 11:43:17 AM Referred By: Confirmed By:VIRGINIA BHAT M.D.
== END 2017-09-08 15:10 | disposition home or self-care (01) | DRG 917 ==
LOC: ERS 21:19 → ERHOLD 23:52 → IMCU/EMU 09-05 14:39 → SURG A 09-07 14:46
PROVIDERS: ADMIT Internal Medicine; ATTEND Internal Medicine
PROC: 5A09357 Assistance with Respiratory Ventilation, Less than 24 Consecutive Hours, Continuous Positive Airway Pressure (ICD-10-PCS; principal; 2017-09-04)
DX: T40.2X1A Poisoning by other opioids, accidental (unintentional), initial encounter (principal); G92 Toxic encephalopathy; J96.02 Acute respiratory failure with hypercapnia; N17.9 Acute kidney failure, unspecified; J44.0 Chronic obstructive pulmonary disease with (acute) lower respiratory infection; I24.8 Other forms of acute ischemic heart disease; E66.01 Morbid (severe) obesity due to excess calories; N18.4 Chronic kidney disease, stage 4 (severe); J96.21 Acute and chronic respiratory failure with hypoxia; J44.1 Chronic obstructive pulmonary disease with (acute) exacerbation; N39.0 Urinary tract infection, site not specified; Y92.009 Unspecified place in unspecified non-institutional (private) residence as the place of occurrence of the external cause; J20.9 Acute bronchitis, unspecified; G47.33 Obstructive sleep apnea (adult) (pediatric); F41.9 Anxiety disorder, unspecified; Z87.891 Personal history of nicotine dependence; M54.30 Sciatica, unspecified side; E86.0 Dehydration; I12.9 Hypertensive chronic kidney disease with stage 1 through stage 4 chronic kidney disease, or unspecified chronic kidney disease; E87.6 Hypokalemia
CPT/HCPCS: 36415; 36416; 70450; 71045; 76770; 80048; 80053; 80061; 80069; 80306; 80307; 81001; 82553; 82570; 82805; 83036; 83690; 83735; 83880; 84300; 84484; 85025; 90471; 90670; 90682; 93005; 94640; 94660; 96361; 96365; 96367; 96372; 96375; A4216; G0008; G0009; G8978-GP-CM; G8979-GP-CK; G8987-GO-CJ; G8988-GO-CI; J0360; J0456; J0696; J1644; J2920; J7050; J7506; J7611; J7620; Q2036